=== PATIENT | female | born 1950 | race African-American/Black ===

== ENCOUNTER 2022-02-24 09:59 | Emergency (ER) | payer MEDICARE ==
[~2022-02-24] VITALS: Ht 167.6 cm; Wt 102.0 kg
[2022-02-24 10:03] VITALS: BP 107/56
[2022-02-24 10:52] LABS: HEMATOCRIT. 38.1 % (36.0-48.0); HEMOGLOBIN. 12.9 g/dL (12.0-16.0); MEAN CORPUSCULAR HEMOGLOBIN 28.7 pg (28.0-32.0); MEAN CORPUSCULAR VOLUME 84.7 fL (81.0-99.0); MEAN PLATELET VOLUME 7.2 fl (7.4-10.4); PLATELET 213 x1000/uL (130-400); RED BLOOD CELL COUNT 4.49 mill/uL (4.2-5.4); RED CELL DISTRIBUTION WIDTH 14.2 % (11.6-14.6)
[2022-02-24 11:01] LABS: INR 1.1; PROTHROMBIN TIME 11.6 sec (9.6-11.0)
[2022-02-24 11:17] LABS: CHLORIDE 103 mEq/L (98-107)
[2022-02-24] MEDS ORDERED: ONDANSETRON HCL 4MG/2ML INJ IV ONE (12:30)
[2022-02-24] MEDS ORDERED: SODIUM CHLORIDE 0.9% 1,000 ML IV ONE (12:30)
[2022-02-24 13:47] LABS: PLATELET ESTIMATE NORMAL
== END 2022-02-24 14:19 | disposition left against medical advice (07) ==
LOC: ER 09:59
DX: R10.84 Generalized abdominal pain (principal); I10 Essential (primary) hypertension; E11.9 Type 2 diabetes mellitus without complications
CPT/HCPCS: 36415; 71045; 80053; 83605; 83690; 84484; 85025; 85610; 99284; J2405; J7030